=== PATIENT | male | born 1960 | race Caucasian/White ===

== ENCOUNTER 2017-04-03 16:18 | Emergency (ER) | payer BC ==
[~2017-04-03] VITALS: Ht 177.8 cm; Wt 77.2 kg
[2017-04-03] MEDS ORDERED: ADACEL/BOOSTRIX VACCINE (DIPHTH/PERTUSS/ACELL/TETANUS)0.5ML SYR (90715) IM ONE (16:45)
--- NOTE | 2017-04-03 17:14 | REP ---
LEFT FINGERS, FOUR VIEWS: HISTORY: Trauma. There is a fracture of the base of the distal phalange of the second digit. Radiopaque densities are present in the soft tissue lateral and anterior to the distal interphalangeal joint space. There is a defect in the overlying soft tissue. IMPRESSION: Fracture of the base of the proximal phalange of the second digit. Signed by Sammy Mcclure MD 04/04/2017 08:20 A
[2017-04-03] MEDS ORDERED: BUPIVACAINE HCL 0.5% 10 ML VIAL SC ONE (17:15)
[2017-04-03] MEDS ORDERED: KEFL500C17 PO ×2 (19:15→19:21)
[2017-04-03] MEDS ORDERED: CEPHALEXIN 500 MG CAP PO ONE (19:15)
[2017-04-03 19:23] VITALS: BP 142/89
== END 2017-04-03 19:25 | disposition home or self-care (01) ==
LOC: M ED 16:18
DX: S62.631A Displaced fracture of distal phalanx of left index finger, initial encounter for closed fracture (principal); S61.211A Laceration without foreign body of left index finger without damage to nail, initial encounter; X58.XXXA Exposure to other specified factors, initial encounter; Y93.89 Activity, other specified; Y92.830 Public park as the place of occurrence of the external cause; Y99.9 Unspecified external cause status

== ENCOUNTER → 2017-08-24 | Outpatient (CLI) | payer BC ==
[2017-08-24 08:24] LABS: HEMATOCRIT 43.3 % (42.0-52.0); HEMOGLOBIN 14.3 g/dl (14.0-18.0); MEAN CORPUSCULAR HEMOGLOBIN 30.1 pg (27.0-33.0); MEAN CORPUSCULAR VOLUME 91.2 fl (80.0-96.0); PLATELET COUNT, AUTOMATED 183 10^3/uL (150-450); RED BLOOD COUNT 4.75 10^6/uL (4.30-6.10); RED CELL DISTRIBUTION WIDTH 12.7 % (11.5-14.5); WHITE BLOOD COUNT 3.7 10^3/uL (4.0-10.0)
[2017-08-24 08:36] LABS: ALBUMIN/GLOBULIN RATIO 1.29 (1.00-1.93); ALKALINE PHOSPHATASE 47 U/L (45-117); ALT/SGPT 22 U/L (12-78); ANION GAP 5 MEQ/L (8-16); AST/SGOT 18 U/L (7-37); BILIRUBIN,TOTAL 0.5 MG/DL (0.2-1.0); BLOOD UREA NITROGEN 24 MG/DL (7-18); CALCIUM LEVEL 8.7 MG/DL (8.5-10.1); CARBON DIOXIDE LEVEL 27 MEQ/L (21-32); CHLORIDE LEVEL 108 MEQ/L (98-107); CHOLESTEROL LEVEL 217 MG/DL (<200); CHOLESTEROL RISK RATIO 3.191 (<5); CREATININE FOR GFR 1.08 MG/DL (0.70-1.30); GLOMERULAR FILTRATION RATE > 60.0 (>56); GLUCOSE, FASTING 94 MG/DL (70-105); HDL CHOLESTEROL 68 MG/DL (>40); LDL CHOLESTEROL 132.4 MG/DL (<100); NON-HDL-C 149 MG/DL; POTASSIUM SERUM 4.5 MEQ/L (3.5-5.1); PROSTATIC SPECIFIC AG MONITOR 1.81 NG/ML (< 4.0); SODIUM LEVEL 140 MEQ/L (136-145); TOTAL PROTEIN 7.1 GM/DL (6.4-8.2); TRIGLYCERIDES LEVEL 83 MG/DL (<150)
== END ==
LOC: M LAB 07:11
DX: Z00.00 Encounter for general adult medical examination without abnormal findings (principal)
CPT/HCPCS: 84443

== ENCOUNTER 2019-03-14 08:16 | Observation (INO) | payer BC ==
[~2019-03-14] VITALS: Ht 177.8 cm; Wt 76.4 kg
[~2019-03-14 08:16] MED LIST: KEFL500C17 PO
--- NOTE | 2019-03-14 08:52 | REP ---
CT HEAD WITHOUT CONTRAST: HISTORY: Syncope. There is no intraparenchymal hemorrhage, mass, or midline shift. The ventricular system is normal in appearance. There is no extracerebral collection. There is no fracture. Minimal mucosal thickening is present in the right ethmoid and left maxillary sinuses. IMPRESSION: There is no intracranial lesion. Unreviewed
[2019-03-14 09:09] LABS: BASO # 0.1 10^3/uL (0.0-0.2); BASO % 1.2 % (0.0-1.0); EOS # 0.1 10^3/uL (0.0-0.50); EOS % 2.4 % (0.0-3.0); HEMATOCRIT 42.5 % (42.0-52.0); HEMOGLOBIN 14.1 g/dl (13.5-17.5); LYMPH # 1.3 10^3/uL (1.5-4.5); LYMPH % 30.7 % (24.0-44.0); MEAN CORPUSCULAR HEMOGLOBIN 30.5 pg (27.0-33.0); MEAN CORPUSCULAR HGB CONC 33.2 g/dl (32.0-36.5); MEAN CORPUSCULAR VOLUME 91.8 fl (80.0-96.0); MONO # 0.3 10^3/uL (0.0-0.8); MONO % 6.1 % (0.0-5.0); NEUTROPHILS # 2.4 10^3/uL (1.8-7.7); NEUTROPHILS % 59.4 % (36.0-66.0); PLATELET COUNT, AUTOMATED 170 10^3/uL (150-450); RED BLOOD COUNT 4.63 10^6/uL (4.30-6.10); WHITE BLOOD COUNT 4.1 10^3/uL (4.0-10.0)
--- NOTE | 2019-03-14 09:25 | REP ---
CT CERVICAL SPINE WITHOUT CONTRAST: HISTORY: Syncope. There is no acute fracture or subluxation. A disc bulge is present at the C3-4 level. There is minimal narrowing of the spinal canal. Bilateral uncinate process hypertrophy is present. This produces minimal narrowing of the C3 neural foramina. A disc bulge with associated osteophyte formation is present at the C4-5 level. There is minimal narrowing of the spinal canal. Bilateral uncinate process hypertrophy is present. This produces moderate and mild narrowing of the right and left C4 neural foraminal respectively. A disc bulge is present at the C6-7 level. There is minimal narrowing of the spinal canal. Uncinate process hypertrophy is present on the left. This produces mild narrowing of the left C5 neural foramen. The right C5 neural foramen is patent. A disc bulge with associated osteophyte formation is present at the C6-7 level. There is minimal narrowing of the spinal canal. Bilateral uncinate process hypertrophy is present. This produces mild and moderate narrowing of the right and left C6 neural foramina respectively. There is no other disc bulge or herniation. The remaining neural foramina are patent. The C4-5 through C6-7 intervertebral discs are decreased in height consistent with disc degeneration. IMPRESSION: 1. There is no acute fracture or subluxation. 2. There is cervical spondylosis at the C3-4 through C6-7 levels. Electronically Signed by Sammy Mcclure MD 03/14/2019 09:33 A
--- NOTE | 2019-03-14 09:31 | REP ---
MAXILLOFACIAL CT WITHOUT CONTRAST: HISTORY: Syncope. Minimal mucosal thickening is present in the maxillary and right ethmoid sinuses. The remaining sinuses are clear. The osteomeatal units are patent. The middle and inferior nasal turbinates are partially paradoxical. There is elza bullosa of the right middle nasal turbinate. There is minimal deviation of the nasal septum to the right. The cribriform plate, medial mayo of the orbits, and optic canals are intact. The carotid canals form a segment of the posterolateral mayo of the sphenoid sinus. There is no fracture. IMPRESSION: 1. Sinus mucosal thickening as described above. 2. There is no acute fracture. Electronically Signed by Sammy Mcclure MD 03/14/2019 09:33 A
[2019-03-14 09:37] LABS: BLOOD UREA NITROGEN 25 MG/DL (7-18); CALCIUM LEVEL 8.9 MG/DL (8.8-10.2); CARBON DIOXIDE LEVEL 25 MEQ/L (21-32); CHLORIDE LEVEL 113 MEQ/L (98-107); CHOLESTEROL LEVEL 218 MG/DL (<200); CK-MB VALUE MASS 2.3 NG/ML (<3.6); CPK CREATINE PHOSPHOKINASE 112 U/L (39-308); GLOMERULAR FILTRATION RATE > 60.0 (>49); GLUCOSE, FASTING 106 MG/DL (70-100); HDL CHOLESTEROL 63 MG/DL (>40); LDL CHOLESTEROL 137 MG/DL (<100); MB/CK RELATIVE INDEX 2.05 (< OR =4); NON-HDL-C 155 MG/DL; POTASSIUM SERUM 4.4 MEQ/L (3.5-5.1); SODIUM LEVEL 143 MEQ/L (136-145); TRIGLYCERIDES LEVEL 91 MG/DL (<150); TROPONIN I < 0.02 NG/ML (< 0.10)
[2019-03-14] MEDS ORDERED: LIDOCAINE 2% W/EPIN INJ 20ML **PRES FREE As Ordered ONE (09:46)
[2019-03-14] MEDS ORDERED: LIDOCAINE 2% W/EPIN INJ 20ML **PRES FREE INJ ONE (10:00)
[2019-03-14] MEDS ORDERED: AMPICILLIN SOD/SULBACTAM SOD 3 GM in D5W MINI-BAG PLUS 100 ML IV ONE (10:30)
[2019-03-14] MEDS ORDERED: ACETAMINOPHEN TAB 650MG DOSE (2X325MG) PO ONE (11:00)
--- NOTE | 2019-03-14 11:28 | CR.PDOC ---
Plastic Surgery Consultation Date of Consultation 03/14/19 History and Physical CONSULT REPORT FOR: ER REASON FOR CONSULTATION: Facial laceration HISTORY OF PRESENT ILLNESS: 58 y/o male s/p fall today. He has chin laceration and left lower lip laceration. Bleeding stopped spontaneously. No neurological deficit. Patient had LOC during the fall. He is up to date with tetanus. Now fully awake, alert, oriented. PAST MEDICAL HISTORY: 1. Denies PAST SURGICAL HISTORY: INCLUDES: 1. Denies. ALLERGIES: Please see below. FAMILY HISTORY: non contributory. HOME MEDICATIONS: Please see below. REVIEW OF SYSTEMS: GENERAL: Denies chills, reports weight gain, reports feeling febrile yesterday. Dizziness HEENT: Denies blurred vision and double vision. Denies ear symptoms. Denies hoarseness. NECK: Denies any neck pain]. CARDIOVASCULAR: Denies chest pain and palpitations. MUSCULOSKELETAL: Denies arthralgias, back pain and thrombophlebitis. SKIN: Denies rash. Laceration face NEUROLOGIC: Denies headache, stroke and transient ischemic attack. PSYCHIATRIC: Denies anxiety and depression. ENDOCRINE: Denies thyroid disease. HEMATOLOGY/ONCOLOGY: Denies bleeding or clotting disorder. HEART: Denies any chest pains, palpitations, paroxysmal dyspnea, orthopnea. PULMONARY: Denies chronic cough, dyspnea and wheezing. GASTROINTESTINAL: Denies rectal bleeding, family history of colon cancer, constipation, diarrhea, dysphagia, heartburn and jaundice. GENITOURINARY: Denies dysuria, frequency, hematuria and nocturia. ENDOCRINE: Denies polydipsia, polyphagia, polyuria, heat or cold intolerance. INFECTIOUS: Denies any recent upper respiratory tract infection, UTI, need for use of antibiotics. NUTRITION: Reports good appetite. PHYSICAL EXAMINATION: VITALS SIGNS: Please see below. GENERAL APPEARANCE:Patient seen, laying in bed, awake, alert, and oriented. Comfortable, in no acute distress. SKIN: Warm and moist. Full thickness laceration horizontally oriented chin. 3 cm. No active bleeding. Avulsion laceration left lower lip. No active bleeding. 1 cm. Full thickness. HEENT: Normocephalic, atraumatic. Vickery palpebral conjunctiva, anicteric sclerae. Lips and mucosa appear moist. NECK: Supple, no thyromegaly. No obvious jugular venous distention. LABORATORY DATA: Please see below. IMAGING STUDIES: Head CT negative for infarcts, bleeding. No bony fractures. IMPRESSION AND PLAN: Laceration full thickness chin and left lower lip. Tetanus up to date. Antibiotics Repair laceration under local anesthesia in ER. See Procedure note. Patient to f/up with plastic surgery within 1 week after discharge. Instructions given. Vital Signs Vital Signs Date Time Temp Pulse Resp B/P (MAP) Pulse Ox O2 Delivery O2 Flow Rate FiO2 03/14/19 08:41 97.3 61 18 121/76 (91) 99 Room Air Laboratory Data Labs 24H Laboratory Tests 2 03/14/19 08:46: Immature Granulocyte % (Auto) 0.2, White Blood Count 4.1, Red Blood Count 4.63, Hemoglobin 14.1, Hematocrit 42.5, Mean Corpuscular Volume 91.8, Mean Corpuscular Hemoglobin 30.5, Mean Corpuscular Hemoglobin Concent 33.2, Red Cell Distribution Width 13.0, Platelet Count 170, Neutrophils (%) (Auto) 59.4, Lymphocytes (%) (Auto) 30.7, Monocytes (%) (Auto) 6.1H, Eosinophils (%) (Auto) 2.4, Basophils ( %) (Auto) 1.2H, Neutrophils # (Auto) 2.4, Lymphocytes # (Auto) 1.3L, Monocytes # (Auto) 0.3, Eosinophils # (Auto) 0.1, Basophils # (Auto) 0.1, Nucleated Red Blood Cells % (auto) 0.0, Anion Gap 5L, Glomerular Filtration Rate > 60.0, Calcium Level 8.9, Total Creatine Kinase 112, Creatine Kinase MB 2.3, Creatine Kinase MB Relative Index 2.05, Troponin I < 0.02, Triglycerides Level 91, LDL Cholesterol 137H, Total Cholesterol 218H, Non-HDL Cholesterol (LDL + VLDL) 155, Total HDL Cholesterol 63, Cholesterol/HDL Ratio 3.460, Thyroid Stimulating Hormone (TSH) 3.630 03/14/19 08:48: Bedside Glucose (Misc Panel) 104 CBC/BMP Laboratory Tests 03/14/19 08:46 Red Blood Count 4.63, Mean Corpuscular Volume 91.8, Mean Corpuscular Hemoglobin 30.5, Mean Corpuscular Hemoglobin Concent 33.2, Red Cell Distribution Width 13.0, Neutrophils (%) (Auto) 59.4, Lymphocytes (%) (Auto) 30.7, Monocytes (%) (Auto) 6.1 H, Eosinophils (%) (Auto) 2.4, Basophils (%) (Auto) 1.2 H, Sergio trophils # (Auto) 2.4, Lymphocytes # (Auto) 1.3 L, Monocytes # (Auto) 0.3, Eosinophils # (Auto) 0.1, Basophils # (Auto) 0.1 Home Medications No Active Prescriptions or Reported Meds Allergies Coded Allergies: No Known Allergies (Unverified , 04/03/17) TONY SIMON DO Mar 14, 2019 11:28
[2019-03-14] MEDS ORDERED: ACETAMINOPHEN TAB 650MG DOSE (2X325MG) PO PRN (11:30)
[2019-03-14] MEDS ORDERED: ACETAMINOPHEN TAB 650MG DOSE (2X325MG) PO SCH (15:00)
[2019-03-14] MEDS ORDERED: ACET1TAB55 PO (15:28)
[2019-03-14 15:33] VITALS: BP 134/83
--- NOTE | 2019-03-14 18:02 | DSES ---
DATE OF ADMISSION: 03/14/2019 DATE OF DISCHARGE: 03/14/2019 PRIMARY DISCHARGE DIAGNOSES: 1. Vasovagal syncope. 2. Laceration to the chin and left upper lip 3. Ecchymosis in the left upper eyebrow. DISCHARGE MEDICATIONS: - Tylenol 650 by mouth every four hours for pain - bacitracin topically to the left upper lip and chin twice a day DISCHARGE INSTRUCTIONS: Followup with Dr. Cadena, cardiology immediately before 4:00 p.m. on the day of discharge for Holter monitor placement. Followup with Dr. Guevara, plastic surgery within 5-7 days of discharge for a wound check. 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 The patient was on the treadmill as he usually is in the morning. After which, he had gone into the pool to cool down, closed the hot tub and then had a fall forwards with loss of consciousness for a few minutes. When he came to, he had 1-2 seconds of confusion, did not know where he was. He had sustained a laceration on the lip, chin, and ecchymosis in the left upper eyebrow. He denied any palpitations, lightheadedness, dizziness, or weakness prior to the fall. He had been feeling feverish yesterday but denies any chills, dysuria, urgency, frequency, diarrhea, constipation, hematochezia, or melena at home. He has had no prior history of syncope but had history of palpitations about 20 years ago, evaluated in [place] with a stress test which turned out to be negative. He had a similar complaint of palpitations about 4-5 years ago which was evaluated by a Holter monitor which also was negative. The patient has never had a syncopal episode and he otherwise denies any changes in vision, diplopia, urine or bowel incontinence, tonic-clonic movements. He was not drinking any alcohol. He denies any recreational drugs. He was in the emergency room and found to have a left lower lip laceration which was repaired by plastic surgery after being given intravenous Unasyn. The patient is up-to-date with his tetanus shot. He was given Tylenol for pain. The patient also had a laceration on the chin which was addressed with Steri-Strips and bacitracin ointment. Due to prior history of palpitations, he did warrant investigative workup but this will be managed by Dr. Cadena as outpatient. His EKG on admission in the emergency room was sinus rhythm, ventricular rate of 59, QT of 378. Telemetry was unremarkable throughout his entire stay. His echocardiogram was within normal limits with normal ejection fraction. No significant valvular disease per Dr. Cadena. The patient was discharged in stable condition after negative orthostatics. He was instructed to present to Dr. Cadena's office before 4:00 p.m. on the same day of admission for Holter monitoring. LABORATORY DATA: White count 4, hemoglobin 14, hematocrit 42, platelet count 170. Sodium 143, potassium 4.4, chloride 113, bicarbonate 25, BUN 25, creatinine 1.2, glucose of 106, calcium 8.9, total CK 112, MB fraction 2.3, troponin less than 0.02, triglycerides 91, total cholesterol 218, LDL 137, TSH 3.63. IMAGING STUDIES: CT of the head shows no intracranial lesion. Maxillofacial CT shows sinus mucosal thickening. No acute fracture. Cervical spine CT shows disc bulges, cervical spondylosis C3-4, C6-7. PHYSICAL EXAMINATION ON DISCHARGE: Temperature 97.3, pulse 61, respiratory rate 18, blood pressure 121/73, 99% on room air. In general, the patient has ecchymosis to the left upper eyelid. He has a left lower lip laceration which has been sutured. Chin has a 3 cm laceration which is bandaged. Pupils are round and reactive. Extraocular muscles are intact. No neck rigidity. Motor function is 5/5. There is a slight facial droop on the left lip secondary to recent anesthesia. Motor strength 5/5 times four extremities. Gait was not tested. No sensory disturbance. Lungs are clear to auscultation. No wheezes, rales, or rhonchi. Heart: S1, S2, sinus rhythm with sinus bradycardia. Abdomen is soft, nontender, nondistended. Positive bowel sounds. Extremities have no cyanosis, clubbing, or any pitting edema. He has some excoriations on the MCP joints of bilateral hands secondary to fall. TIME SPENT ON DISCHARGE: 32 minutes.
--- NOTE | 2019-03-14 18:32 | HPE ---
DATE OF ADMISSION: 03/14/2019 CHIEF COMPLAINT: Fall. 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 The patient was on the treadmill at home for about half an hour and went into the hot tub for a few minutes and then plunged into his pool. He then came out of the pool and closed the hot tub and woke up on the floor after falling forward lacerating his left lower lip, chin, and bruising on the left upper eyebrow. The patient said that it was just for a few minutes. When he came to, he was not sure where he was for about 1-2 seconds. He otherwise denied any tonic-clonic activity and no urine or bowel incontinence. He has been in his usual state of health and has been doing the same routine for several years before he comes to work. He denies any changes in weight, chills. He did feel slightly febrile yesterday. No palpitations, dizziness or lightheadedness prior to his fall today. No feeling of impending doom, chest pressure or tightness. His legs did not feel like they buckled. He denied any changes in vision, after coming around, ear symptoms, sore throat. Denies any neck pain, chest pain, dysuria, urgency, frequency,flank pain. No prior history of stroke, transient ischemic attack (TIA), myocardial infarction (ME). Denies any paroxysmal nocturnal dyspnea (PND) or orthopnea, lower extremity edema, cough, wheezing. Denies any diarrhea, rectal bleed, hematemesis, hematochezia. Denies any recent upper respiratory infection, cough, nasal congestion. No changes in appetite. The patient had palpitations about 20 years ago, which was evaluated in [place] with a negative stress test and Holter monitor. He had another occasion of palpitations without any syncope and had a [employer] monitor about 5-7 years ago, which was also negative. PAST MEDICAL HISTORY: None. PAST SURGICAL HISTORY: Tonsillectomy at the age of 3. ALLERGIES: No known drug allergies. HOME MEDICATIONS: None. FAMILY HISTORY: 92-year-old father with dementia, 88-year-old mother alive and well. One brother, one sister alive and well with no medical problems. REVIEW OF SYSTEMS: Per history of the present illness. Twelve-point system is otherwise negative aside from positive findings from history of presenting illness. PHYSICAL EXAMINATION: Temperature 97.1, pulse 63, respiratory rate 18, blood pressure is 134/83, negative orthostasis, 99% on room air. Generally, the patient is awake, alert, oriented times three, answering questions appropriately. There is a slight facial asymmetry due to recent anesthetic being given causing a little bit of drooping on the left side of the face. He has a 3 cm laceration that has been sutured and left lower lip sutures. There is currently no active bleeding. He has some ecchymosis on the left eyebrow. No cervical lymphadenopathy, thyromegaly or jugular venous distention. Lungs are clear to auscultation. No wheezing, rales or rhonchi. Heart: S1, S2, sinus rhythm. Abdomen is soft, nontender, nondistended. Positive bowel sounds. He has some excoriations on the metacarpophalangeal (MCP) joints from the fall. Neurologically, pupils round and reactive. Extraocular muscles intact. He has no raccoon eyes. Motor function is 5/5 times four extremities. Gait was not tested. No sensory disturbance. LABORATORY DATA: White count 4.1, hemoglobin 14, hematocrit 42, platelet count 170. Sodium 143, potassium 4.4, chloride 113, bicarbonate 25, BUN 25, creatinine 1.2, glucose of 106, troponin less than 0.02, MB fraction 2.3, total CK 112, triglycerides 91, total cholesterol 218, LDL 137, HDL 63, TSH 3.63. IMAGING STUDIES: CT of the head, 03/14/2019: Ventricular system is normal. No fracture. Minimal mucosal thickening in the right ethmoid and left maxillary sinuses. There is no intracranial lesion. Cervical spine CT: There is no acute fracture or dislocation. There is cervical spondylosis at C3-4 through C6-7, disc bulges. Maxillofacial CT, 03/14/2019: Sinus mucosal thickening. There is no acute fracture. ASSESSMENT AND PLAN: 58-year-old male status post syncopal episode at home, presented with left lower lip laceration and chin laceration, about 3 cm, status post repair under local anesthesia in the emergency room. Tetanus was given. Antibiotics given times one dose with intravenous Unasyn. 1. Syncope. The patient describes going into a hot tub, which could have caused vasodilation causing possible hypotension resulting in the fall. However, he does say that he went into the pool and was able to come out okay, then closed the hot tub. Per Dr. Cadena, the more concerning issue are the two episodes of palpitations that he had 5 years ago and the other about 20 years ago and will need further evaluation. He had suggested continuing with Holter monitoring. Patient has been sent to his office and to have full workup for palpitations. STAT echocardiogram showed no significant acute issues. There is no valvular disease that could have contributed to patient's syncope. Orthostatics were negative in the emergency room. Patient did not present with any TIA symptoms. CT of the head was negative. His CBC was normal. No signs of anemia. There is no renal failure. Liver function tests were stable. Cardiac markers were negative. The patient was stable for hospital discharge. 2. Prior history of palpitations. He currently denies any palpitations during this episode. Two prior episodes of palpitations were previously evaluated - initially 20 years ago with a stress test, which was negative, and secondly with a e[employer] monitor about 5 years ago, which was also negative. Patient will most likely need a Holter monitor and close followup with cardiology, Dr. Cadena. 3. Lip and chin lacerations. Status post tetanus, which was up to date. The patient was given IV Unasyn and to followup with Dr. Guevara. Topical bacitracin to the lip twice a day. DISPOSITION: Patient may be discharged home with immediate Holter monitor to be done at Dr. Cadena's office this afternoon. RANDY
--- NOTE | 2019-03-15 08:00 | ECGEPIP ---
[facility] - ED Test Date: 2019-03-14 Pat Name: JENNIFER DOZIER Department: Room: - Gender: Male Life Consultant: YAZAN : 1960 Requested By: Mark Jones Order Number: [id number] Reading MD: Kira Dalal Measurements Intervals [place] Rate: 59 P: 36 CT: 175 QRS: 75 QRSD: 80 T: 46 QT: 375 QTc: 374 Interpretive Statements SINUS BRADYCARDIA No prior Electronically Signed on 03-15-2019 8:00:28 EDT by Kira Dalal
--- NOTE | 2019-03-15 09:58 | ECHO ---
DATE OF PROCEDURE: 03/14/2019 DATE OF : 1960 AGE: 58 GENDER: Male HEIGHT: 70 inches WEIGHT: 167 pounds BODY SURFACE AREA: 1.94 meters squared Outpatient - in the emergency room REFERRING PHYSICIAN: Dr. Steffanie Douglas INDICATION: Syncope. MEASUREMENTS: 2D Measurements: RV: 3.2 cm LV: 4.6 cm Septum: 1.0 cm Posterior wall: 0.9 cm Aortic root: 3.0 cm LA: 3.6 cm LVEF: 65% DOPPLER MEASUREMENTS: AV: 1.5 meters per second LVOT: 1.1 meters per second LVOT diameter: 2.1 cm MV-E: 66, A: 52, EA ratio: 1.3 Early mitral deceleration time: 236 milliseconds E prime: 7.7, A prime: 11.9, E/E prime ratio: 8.6 PV: 0.8 meters per second Pulmonary artery acceleration time: 109 milliseconds PASP: 32 mmHg IVC: 1.9 cm COMMENTS: Normal sinus rhythm/sinus bradycardia without intraventricular conduction disturbance. M-mode and two-dimensional echocardiography was performed with pulsed, continuous wave, color flow and tissue Doppler studies. Normal left ventricular size, wall thickness and wall motion. Normal left atrial size and Doppler assessment of left ventricular (LV) diastolic function and estimated mean left atrial pressure. Normal right heart chamber sizes and motion with Doppler sign of pulmonary arterial pressure upper limits of normal to borderline increased. Normal inferior vena cava (IVC) size and collapse against an elevated central venous pressure. Subtle aortic valvular sclerosis without stenosis and only trace insufficiency. Normal aortic root size. Marginal mitral annular thickening without functional valvular abnormality. No apparent intracardiac mass or pericardial effusion. No obvious structural or functional abnormality to account for the patient's recent syncopal spell.
--- NOTE | 2019-03-17 12:04 | RO ---
DATE OF PROCEDURE: 03/14/2019 PREOPERATIVE DIAGNOSIS: Facial lacerations, chin and left lower lip. POSTOPERATIVE DIAGNOSIS: Facial lacerations, chin and lower lip. PROCEDURE: Repair of facial lacerations. SURGEON: Elda Guevara DO KEEL PRESS OPERATOR: ANESTHESIA: Informed consent was obtained from the patient. All of the risks, benefits and alternatives discussed. Then a submental block was given with 2% lidocaine with epinephrine. After the number effects of the block were ensured, we prepped the area with Betadine and the wound measured to be 3 cm in length on the chin, full thickness to the bone. It was irrigated with normal saline. No debris was identified and there is no active bleeding. The repair was done with multiple interrupted sutures with muscle layer with #5-0 Vicryl suture, subcu #5-0 Monocryl and also a dermal stitch of a #5-0 plain chromic gut stitch. Steri-Strips were applied. For the lip, the lip was an avulsion injury. It was about 1 cm, however it is completely viable tissue so we have irrigated it and then sutured in place. It has a good contour. No vermilion border is affected. The suturing was done with #5-0 plain gut sutures and bacitracin is applied. The patient tolerated the procedure well. He will be following up with plastic surgery and all instructions are given to the patient.
== END 2019-03-14 15:40 | disposition home or self-care (01) ==
LOC: M ED 08:16 → EEVIPCON 08:16 → M ED INP 08:17
PROVIDERS: ADMIT General Practice; ATTEND General Practice
DX: R55 Syncope and collapse (principal); S01.80XA Unspecified open wound of other part of head, initial encounter; S01.511A Laceration without foreign body of lip, initial encounter; S00.12XA Contusion of left eyelid and periocular area, initial encounter; W19.XXXA Unspecified fall, initial encounter; Y92.016 Swimming-pool in single-family (private) house or garden as the place of occurrence of the external cause; Y93.89 Activity, other specified; E78.00 Pure hypercholesterolemia, unspecified; Z86.79 Personal history of other diseases of the circulatory system; Y99.8 Other external cause status

== ENCOUNTER → 2020-08-05 | Outpatient (REF) ==
[~2020-08-05] MED LIST changes: +ACET1TAB55 PO
[2020-08-07 10:09] LABS: RSV AMPLIFICATION NEGATIVE (NEGATIVE)
== END ==
LOC: M EMP 08:35
PROVIDERS: ATTEND Family Medicine
DX: Z20.828 Contact with and (suspected) exposure to other viral communicable diseases (principal)

== ENCOUNTER → 2020-10-30 | Outpatient (CLI) | payer BC ==
[2020-10-30 11:29] LABS: BLOOD UREA NITROGEN 21 MG/DL (7-18); CARBON DIOXIDE LEVEL 30 MEQ/L (21-32); CHLORIDE LEVEL 109 MEQ/L (98-107); CHOLESTEROL LEVEL 188 MG/DL (<200); CHOLESTEROL RISK RATIO 3.418 (<5); CREATININE FOR GFR 1.07 MG/DL (0.70-1.30); GLOMERULAR FILTRATION RATE > 60.0 (>49); GLUCOSE, FASTING 87 MG/DL (70-100); HDL CHOLESTEROL 55 MG/DL (>40); LDL CHOLESTEROL 118 MG/DL (<100); NON-HDL-C 133 MG/DL; POTASSIUM SERUM 4.7 MEQ/L (3.5-5.1); SODIUM LEVEL 143 MEQ/L (136-145); TRIGLYCERIDES LEVEL 76 MG/DL (<150)
== END ==
LOC: M LAB 10:25
PROVIDERS: ATTEND Internal Medicine Cardiovascular Disease
DX: E78.00 Pure hypercholesterolemia, unspecified (principal)

== ENCOUNTER → 2021-05-06 | Outpatient (CLI) | payer BC ==
[2021-05-06 11:04] LABS: BASO % 0.8 % (0.0-1.0); EOS # 0.1 10^3/uL (0.0-0.5); EOS % 1.5 % (0.0-3.0); HEMATOCRIT 44.7 % (42.0-52.0); HEMOGLOBIN 14.5 g/dl (13.5-17.5); LYMPH # 0.9 10^3/uL (1.5-5.0); LYMPH % 17.1 % (24.0-44.0); MEAN CORPUSCULAR HEMOGLOBIN 30.8 pg (27.0-33.0); MEAN CORPUSCULAR HGB CONC 32.4 g/dl (32.0-36.5); MEAN CORPUSCULAR VOLUME 94.9 fl (80.0-96.0); MONO # 0.5 10^3/uL (0.0-0.8); MONO % 9.5 % (2.0-8.0); NEUTROPHILS # 3.7 10^3/uL (1.5-8.5); NEUTROPHILS % 70.5 % (36.0-66.0); PLATELET COUNT, AUTOMATED 155 10^3/uL (150-450); RED BLOOD COUNT 4.71 10^6/uL (4.30-6.10); WHITE BLOOD COUNT 5.3 10^3/uL (4.0-10.0)
[2021-05-06 11:49] LABS: BLOOD UREA NITROGEN 22 MG/DL (7-18); CALCIUM LEVEL 9.2 MG/DL (8.8-10.2); CARBON DIOXIDE LEVEL 29 MEQ/L (21-32); CHLORIDE LEVEL 106 MEQ/L (98-107); CREATININE FOR GFR 1.09 MG/DL (0.70-1.30); GLOMERULAR FILTRATION RATE > 60.0 (>49); GLUCOSE, FASTING 86 MG/DL (70-100); POTASSIUM SERUM 4.2 MEQ/L (3.5-5.1); SODIUM LEVEL 141 MEQ/L (136-145)
[2021-05-06 11:50] LABS: ALT/SGPT 32 U/L (12-78); BILIRUBIN,TOTAL 0.5 MG/DL (0.2-1.0); CHOLESTEROL LEVEL 194 MG/DL (<200); CHOLESTEROL RISK RATIO 2.811 (<5); HDL CHOLESTEROL 69 MG/DL (>40); LDL CHOLESTEROL 109 MG/DL (<100); NON-HDL-C 125 MG/DL; TOTAL PROTEIN 7.1 GM/DL (6.4-8.2); TRIGLYCERIDES LEVEL 78 MG/DL (<150)
== END ==
LOC: M LAB 09:54
PROVIDERS: ATTEND Emergency Medicine
DX: I82.402 Acute embolism and thrombosis of unspecified deep veins of left lower extremity (principal)

== ENCOUNTER → 2021-05-06 | Outpatient (REF) | LOC: M EMP 09:13 | PROVIDERS: ATTEND Family Medicine | DX: Z11.52 Encounter for screening for COVID-19 (principal) ==

== ENCOUNTER 2021-05-07 10:18 | Emergency (ER) | payer BC ==
[~2021-05-07] VITALS: Ht 177.8 cm; Wt 77.2 kg
[2021-05-07 10:18] VITALS: BP 114/75
--- NOTE | 2021-05-07 11:21 | REP ---
INDICATION: r/o DVT. COMPARISON: None. TECHNIQUE: Left {lower extremity duplex venous scanning is performed from the groin to the ankle level. FINDINGS: The deep veins are anechoic and fully compressible from the groin to the popliteal fossa in the left lower extremity. Color flow imaging is homogeneous. Spectral Doppler interrogation demonstrates intact respiratory variation in flow and normal manual augmentation of flow. There is no evidence of deep vein thrombosis above the knee. There is no evidence of DVT in the visualized calf veins. Doppler interrogation of the contralateral common femoral vein shows normal symmetric respiratory phasicity. IMPRESSION: No evidence of DVT in the left lower extremity femoropopliteal veins. No DVT in the visible portions of the calf veins. <Electronically signed by Fawad Shrestha > 05/07/21 [id number]
== END 2021-05-07 11:45 | disposition home or self-care (01) ==
LOC: M ED 10:18
DX: S86.912A Strain of unspecified muscle(s) and tendon(s) at lower leg level, left leg, initial encounter (principal); X50.0XXA Overexertion from strenuous movement or load, initial encounter; Y92.9 Unspecified place or not applicable; Y93.9 Activity, unspecified; Y99.9 Unspecified external cause status; R79.1 Abnormal coagulation profile

== ENCOUNTER → 2021-08-02 | Outpatient (REF) ==
[2021-08-02 10:15] LABS: RSV AMPLIFICATION NEGATIVE (NEGATIVE)
== END ==
LOC: M EMP 09:22
PROVIDERS: ATTEND Family Medicine
DX: Z11.52 Encounter for screening for COVID-19 (principal)

== ENCOUNTER → 2021-11-09 | Outpatient (REF) | payer BC | LOC: M SFHCDERM 14:04 | PROVIDERS: ATTEND Physician Assistant | DX: D49.2 Neoplasm of unspecified behavior of bone, soft tissue, and skin (principal) ==

== ENCOUNTER → 2022-02-09 | Outpatient (REF) | payer BC | LOC: M SFHCDERM 14:20 | PROVIDERS: ATTEND Dermatology | DX: L60.8 Other nail disorders (principal) ==

== ENCOUNTER → 2022-06-12 | Outpatient (REF) ==
[2022-06-12 11:22] LABS: RSV AMPLIFICATION NEGATIVE (NEGATIVE)
== END ==
LOC: M EMP 09:30
PROVIDERS: ATTEND Family Medicine
DX: Z11.52 Encounter for screening for COVID-19 (principal)

== ENCOUNTER → 2022-07-27 | Outpatient (REF) | LOC: M EMP 12:14 | PROVIDERS: ATTEND Family Medicine | DX: Z11.52 Encounter for screening for COVID-19 (principal) ==

== ENCOUNTER → 2022-09-25 | Outpatient (REF) | LOC: M EMP 11:52 | PROVIDERS: ATTEND Family Medicine | DX: Z11.52 Encounter for screening for COVID-19 (principal) ==

== ENCOUNTER → 2022-09-29 | Outpatient (REF) | LOC: M EMP 09:09 | PROVIDERS: ATTEND Family Medicine | DX: Z11.52 Encounter for screening for COVID-19 (principal) ==

== ENCOUNTER → 2023-07-13 | Outpatient (REF) | LOC: M EMP 12:39 | PROVIDERS: ATTEND Family Medicine | DX: Z11.52 Encounter for screening for COVID-19 (principal) ==

== ENCOUNTER → 2024-10-17 | Outpatient (CLI) | payer BC ==
[2024-10-17 16:16] LABS: BASO % 0.7 % (0.0-1.0); EOS # 0.1 10^3/uL (0.0-0.5); EOS % 2.7 % (0.0-3.0); HEMATOCRIT 43.8 % (42.0-52.0); HEMOGLOBIN 13.9 g/dl (13.5-17.5); LYMPH # 1.3 10^3/uL (1.5-5.0); LYMPH % 30.8 % (24.0-44.0); MEAN CORPUSCULAR HGB CONC 31.7 g/dl (32.0-36.5); MEAN CORPUSCULAR VOLUME 94.6 fl (80.0-96.0); MONO # 0.3 10^3/uL (0.0-0.8); MONO % 6.7 % (2.0-8.0); NEUTROPHILS # 2.4 10^3/uL (1.5-8.5); NEUTROPHILS % 58.9 % (36.0-66.0); PLATELET COUNT, AUTOMATED 171 10^3/uL (150-450); RED BLOOD COUNT 4.63 10^6/uL (4.30-6.10); WHITE BLOOD COUNT 4.1 10^3/uL (4.0-10.0)
[2024-10-17 16:27] LABS: ERYTHROCYTE SEDIMENTATION RATE 7 mm/hr (0-20)
[2024-10-17 16:37] LABS: URIC ACID 6.2 MG/DL (3.7-9.2)
[2024-10-17 16:39] LABS: C REACTIVE PROTEIN QUANTITATIV < 0.50 MG/DL (<1.0); IMMUNOGLOBULIN A 39.9 MG/DL (40-350)
[2024-10-17 16:40] LABS: ALBUMIN 3.9 G/DL (3.2-5.2); ALKALINE PHOSPHATASE 46 U/L (40-129); ALT/SGPT 19 U/L (7.0-40); AST/SGOT 14 U/L (<34); BILIRUBIN,TOTAL 0.5 MG/DL (0.3-1.2); BLOOD UREA NITROGEN 28 MG/DL (9-23); CALCIUM LEVEL 9.4 MG/DL (8.3-10.6); CARBON DIOXIDE LEVEL 30 MMOL/L (20-31); CHLORIDE LEVEL 104 MMOL/L (98-107); CREATININE FOR GFR 1.07 MG/DL (0.70-1.30); GLOMERULAR FILTRATION RATE > 60.0 (>49); GLUCOSE, FASTING 80 MG/DL (74-106); POTASSIUM SERUM 4.2 MMOL/L (3.5-5.1); RHEUMATOID FACTOR QUANT 6.4 IU/ML (<14); SODIUM LEVEL 142 MMOL/L (136-145); TOTAL PROTEIN 6.7 G/DL (5.7-8.2)
[2024-10-21 02:18] LABS: TISSUE TRANSGLUTAMINASE IgA < 1.0 U/mL (<15.0)
== END ==
LOC: M WUC 08:55
PROVIDERS: ATTEND Internal Medicine
DX: E78.00 Pure hypercholesterolemia, unspecified (principal); M19.042 Primary osteoarthritis, left hand; M19.041 Primary osteoarthritis, right hand; M25.531 Pain in right wrist; R93.6 Abnormal findings on diagnostic imaging of limbs

== ENCOUNTER → 2024-11-11 | Outpatient (REF) | payer BC ==
[2024-11-11 14:18] LABS: GC DNA AMPLIFICATION NEGATIVE (NEGATIVE)
== END ==
LOC: M LAB REF 12:07
PROVIDERS: ATTEND Internal Medicine
DX: M13.0 Polyarthritis, unspecified (principal)